=== PATIENT | female | born 1965 | race Caucasian/White ===

== ENCOUNTER 2017-04-24 11:10 | Emergency (ER) | payer OTHER ==
[2017-04-24 11:39] VITALS: RESP 16
[2017-04-24] MEDS ORDERED: NS 1,000 ML IV ONE (12:02)
--- NOTE | 2017-04-24 12:13 | EDPHY ---
H & P Stated Complaint: WYNN, WEAKNESS, BLURRY VISION Time Seen by Provider: 04/24/17 11:29 HPI/ROS: CHIEF COMPLAINT: Multiple complaints HISTORY OF PRESENT ILLNESS: The patient presents to the ED with an acute exacerbation of multiple complaints. Her chief complaint is malaise. This is been going on for several days acutely. The patient has complaints of blurry vision, mild cognitive dysfunction, intermittent paresthesias, myalgias and insomnia. The patient does have a history of breast cancer. She is currently receiving chemotherapy through [facility]. The patient denies history of fall or trauma. She reportedly had an MRI performed approximately 1 month ago which documented multiple small glioma is which were felt to be clinically insignificant. REVIEW OF SYSTEMS: A comprehensive 10 point review of systems is otherwise negative aside from elements mentioned in the history of present illness. Source: Patient, Family Exam Limitations: No limitations - Personal History Current Tetanus/Diphtheria Vaccine: Unsure - Medical/Surgical History Hx Asthma: No Hx Chronic Respiratory Disease: No Hx Diabetes: No Hx Cardiac Disease: No Hx Renal Disease: No Hx Cirrhosis: No Hx Alcoholism: No Hx HIV/AIDS: No Hx Splenectomy or Spleen Trauma: No Other PMH: BREAST CA - Social History Smoking Status: Never smoked - Physical Exam Exam: General Appearance: Alert, no distress Eyes: Pupils equal and round no pallor or injection ENT, Mouth: Mucous membranes moist Respiratory: There are no retractions, lungs are clear to auscultation Cardiovascular: Regular rate and rhythm Gastrointestinal: Abdomen is soft and nontender, no masses, bowel sounds normal Neurological: A&O, normal motor function, normal sensory exam, normal cranial nerves Skin: Warm and dry, no rashes Musculoskeletal: Neck is supple nontender Extremities: symmetrical, full range of motion Constitutional: Initial Vital Signs Temperature (C) 36.9 C 04/24/17 11:36 Heart Rate 67 04/24/17 11:36 Respiratory Rate 16 04/24/17 11:36 Blood Pressure 116/86 H 04/24/17 11:36 O2 Sat (%) 95 04/24/17 11:36 O2 Delivery Mode Room Air Allergies/Adverse Reactions: prednisone Allergy (Severe, Verified 09/06/12 15:26) scopolamine Allergy (Mild, Verified 09/06/12 15:26) acetaminophen Allergy (Verified 09/06/12 15:26) ketamine [Ketamine] Allergy (Verified 09/06/12 15:26) Anaphylaxis Home Medications: Medication Instructions Recorded Miscellaneous Medical Supply [NO 1 ea MISC AD 12/22/11 HOME MEDS] Pharmacist Completed 06-19-12 06/19/12 Medical Decision Making - Diagnostics Imaging Results: Imaging Impressions Brain MRI 04/24/17 12:06 Impression: There are a few periventricular and deep hemispheric white matter lesions bilaterally in both frontal lobes. These are nonspecific and can be seen with small vessel ischemic disease, gliosis from migraine or trauma, or atypical demyelinating disease. No evidence for abnormal enhancement or acute infarct. Results called and discussed with Dr. Cornelius Lantigua on 04/24/2017, 14:02. ED Course/Re-evaluation: The patient presents the ED for evaluation of multiple complaints. She reportedly had an abnormal MRI several weeks ago. I find the patient's neurologic examination to be normal. The patient does have a history of blood clots but has a negative D-dimer today. Her metabolic panel is within normal limits. The patient did have a brain MRI which demonstrates no obvious glioma but does have some subtle nonspecific white matter changes noted. There is no evidence of a stroke or enhancing lesions. The patient's laboratory studies are within normal limits. At this point time I doubt she is experiencing a [employer] infection or neurosurgical emergency. I find her examination to be reassuring. I do feel that she can workup her symptoms as an outpatient with her primary care provider and our neurology service. She has been advised to follow up with them this week. She should return to the ED for markedly worsening symptoms or other concerns. Differential Diagnosis: Differential diagnosis considered includes dehydration, metabolic abnormality, [employer] lesion, neuropathy - Data Points Laboratory Results: Laboratory Results 04/24/17 12:21 04/24/17 12:21 04/24/17 04/24/17 04/24/17 12:21 12:21 12:21 WBC 5.64 10^3/uL 10^3/uL (3.80-9.50) RBC 4.81 10^6/uL 10^6/uL (4.18-5.33) Hgb 15.1 g/dL g/dL (12.6-16.3) Hct 42.9 % % (38.0-47.0) MCV 89.2 fL fL (81.5-99.8) MCH 31.4 pg pg (27.9-34.1) MCHC 35.2 g/dL g/dL (32.4-36.7) RDW 11.9 % % (11.5-15.2) Plt Count 322 10^3/uL 10^3/uL (150-400) MPV 8.7 fL fL (8.7-11.7) Neut % (Auto) 56.7 % % (39.3-74.2) Lymph % (Auto) 31.2 % % (15.0-45.0) Carlton % (Auto) 10.8 % % (4.5-13.0) Eos % (Auto) 0.4 % L % (0.6-7.6) Baso % (Auto) 0.7 % % (0.3-1.7) Nucleat RBC Rel Count 0.0 % % (0.0-0.2) Absolute Neuts (auto) 3.20 10^3/uL 10^3/uL (1.70-6.50) Absolute Lymphs (auto) 1.76 10^3/uL 10^3/uL (1.00-3.00) Absolute Monos (auto) 0.61 10^3/uL 10^3/uL (0.30-0.80) Absolute Eos (auto) 0.02 10^3/uL L 10^3/uL (0.03-0.40) Absolute Basos (auto) 0.04 10^3/uL 10^3/uL (0.02-0.10) Absolute Nucleated RBC 0.00 10^3/uL 10^3/uL (0-0.01) Immature Gran % 0.2 % % (0.0-1.1) Immature Gran # 0.01 10^3/uL 10^3/uL (0.00-0.10) D-Dimer < 0.27 ug/mLFEU ug/mLFEU (0.00-0.50) Sodium 139 mEq/L mEq/L (134-144) Potassium 4.3 mEq/L mEq/L (3.5-5.2) Chloride 104 mEq/L mEq/L (97-110) Carbon Dioxide 24 mEq/l mEq/l (22-31) Anion Gap 11 mEq/L mEq/L (8-16) BUN 11 mg/dL mg/dL (7-23) Creatinine 0.8 mg/dL mg/dL (0.6-1.0) Estimated GFR > 60 Glucose 86 mg/dL mg/dL (70-100) Calcium 9.9 mg/dL mg/dL (8.5-10.4) Total Bilirubin 0.5 mg/dL mg/dL (0.1-1.4) Conjugated Bilirubin 0.2 mg/dL mg/dL (0.0-0.5) Unconjugated Bilirubin 0.3 mg/dL mg/dL (0.0-1.1) AST 27 IU/L IU/L (14-46) ALT 39 IU/L IU/L (9-52) Alkaline Phosphatase 80 IU/L IU/L (38-126) Total Protein 6.7 g/dL g/dL (6.3-8.2) Albumin 4.3 g/dL g/dL (3.5-5.0) Lipase 69 IU/L IU/L (23-300) Medications Given: Discontinued Medications Sodium Chloride (Ns) 1,000 mls @ 0 mls/hr IV EDNOW ONE; Wide Open PRN Reason: Protocol Stop: 04/24/17 12:03 Last Admin: 04/24/17 12:28 Dose: 1,000 mls Departure - Departure Disposition: Home, Routine, Self-Care Clinical Impression: Paresthesias, Fatigue, Insomnia Condition: Good Instructions: Fatigue (ED) Additional Instructions: 1. The testing done in the emergency department demonstrates no acute abnormalities. You have a few areas of nonspecific changes on your MRI without an obvious glioma noted by the radiologist today. 2. Your blood testing is within normal limits. 3. I recommend following up with your primary care provider to review your symptoms. You have also been given the number of our on-call neurologist who would be happy to see you in follow-up. Referrals: Yenny Grimes MD [Primary Care Provider] - As per Instructions Biju Morse DO [Medical Doctor] - As per Instructions
[2017-04-24 12:33] LABS: PLATELET COUNT 322 10^3/uL (150-400)
[2017-04-24] MEDS ORDERED: GADOBUTROL 10 ML VIAL IVP ONE (13:18)
[2017-04-24 15:24] VITALS: BP 105/74; PULSE 79; TEMP 98.1; O2SAT 94
== END 2017-04-24 15:24 | disposition home or self-care (01) ==
DX: R20.2 Paresthesia of skin (principal); R53.83 Other fatigue; G47.00 Insomnia, unspecified; E86.9 Volume depletion, unspecified; Z85.3 Personal history of malignant neoplasm of breast
CPT/HCPCS: A9585

== ENCOUNTER → 2018-10-10 | Outpatient (CLI) | payer OTHER, MEDICAID | LOC: BMCIMAGING 14:41 ==